=== PATIENT | female | born 1990 | race Caucasian/White ===

== ENCOUNTER 2021-05-12 17:06 | Outpatient (CLI) | payer OTHER ==
--- NOTE | 2021-05-12 18:33 | Ultrasound Report ---
PROCEDURE: OB Limited INDICATIONS: SPOTTING 3RD TRIMESTER, CERVICAL LENGTH OUTSIDE/PRIOR DATING DATA: Last menstrual period (LMP): 10/19/2020. LMP-based estimated date of delivery (MORGAN): 07/26/2021. First dating scan (date and location): 02/04/2021. Estimated date of delivery (MORGAN) from first dating scan: 08/03/2021. The below data below was generated using the ultrasound MORGAN of 08/03/2021 TECHNIQUE: Real-time scanning was performed of the fetus, with image documentation. Endovaginal scanning: Performed COMPARISON: None. FINDINGS: A single living intrauterine gestation is present. Presentation: Cephalic Placenta: Placental position is anterior, without previa. Amniotic fluid index: 13.4 cm, with normal 5-24 cm. Largest fluid pocket 4.3 cm. heart rate: 140 beats per minutes. Maternal cervical canal: Closed and 4.6 cm long; normal length is 2.5 cm or more. Estimated gestational age from initial scan: 28 weeks 1 day. IMPRESSION: 1. Single living intrauterine . 2. No evidence of placental abruption. 3. Normal amniotic fluid index. Reviewed by: Galilea Vázquez MD, PhD on 05/12/2021 6:32 PM PST Approved by: Galilea Vázquez MD, PhD on 05/12/2021 6:32 PM PST Station ID: [id number]
== END 2021-05-12 17:07 | disposition home or self-care (01) ==
LOC: DI 17:06
PROVIDERS: ATTEND Midwife
DX: O26.853 Spotting complicating pregnancy, third trimester (principal); Z3A.28 28 weeks gestation of pregnancy

== ENCOUNTER 2021-08-03 18:05 | Inpatient (IN) | payer OTHER ==
[2021-08-03] MEDS ORDERED: miSOPROStoL 200 MCG TABLET PR PRN (18:28)
[2021-08-03] MEDS ORDERED: OXYTOCIN/SODIUM CHLORIDE 500 ML IV PRN (18:28)
[2021-08-03] MEDS ORDERED: LIDOCAINE-MPF 1% 30 ML VIAL ID PRN (18:28)
[2021-08-03] MEDS ORDERED: SODIUM CHLORIDE FLUSH 0.9% 10 ML SYRINGE IVP PRN (18:28)
[2021-08-03] MEDS ORDERED: ACETAMINOPHEN 500 MG TABLET PO PRN (18:28)
[2021-08-03] MEDS ORDERED: OXYTOCIN 10 UNIT/ML VIAL IM PRN (18:28)
[2021-08-03] MEDS ORDERED: LABETALOL 20 MG/4 ML SYRINGE IVP PRN ×2 (18:28)
[2021-08-03] MEDS ORDERED: LACTATED RINGERS 500 ML IV PRN (18:28)
[2021-08-03] MEDS ORDERED: TRANEXAMIC ACID IN NACL 1,000 MG/100 ML BAG IV PRN (18:28)
[2021-08-03] MEDS ORDERED: CARBOPROST TROMETHAMINE 250 MCG/ML AMP IM PRN (18:28)
[2021-08-03] MEDS ORDERED: TERBUTALINE 1 MG/ML VIAL SUBQ PRN (18:28)
[2021-08-03] MEDS ORDERED: fentaNYL 100 MCG/2 ML VIAL IVP PRN (18:28)
[2021-08-03] MEDS ORDERED: METHYLERGONOVINE 0.2 MG/ML VIAL IM PRN (18:28)
[2021-08-03] MEDS ORDERED: miSOPROStoL 200 MCG TABLET BC PRN (18:28)
[2021-08-03] MEDS ORDERED: hydrALAZINE INJ 20 MG/ML VIAL IVP PRN (18:28)
--- NOTE | 2021-08-03 18:34 | HISTORY & PHYSICAL EXAMINATION ---
Admit History - Visit Reason Visit Reason: Contractions - : 1 Parity: 0 Care: positive: Other ([facility]) - Mother's Labs Mother's Blood Type: positive: O Mother's RH: positive: Negative GBS: positive: Group B Step Negative - Other Maternal History Other Maternal History: ID: Patient is a 30 yo at 40+0 wga here as a transfer from [facility] HPI: Patient has been receving [facility] form [facility]. Pregnacy has been uncomplicated. Patient has been in prodromal labor for about 3 days. She has onyl advacned to 3 cm dilation and is exhausted. She is requesting admission with epidural placement. She would like a low intervention labor course. Having regular contractions. No LOF or VB. Endorses FM. having a female named Noemi. GBS negative. O negative. No hx of HSV. Hard copy of records were not yet available but electronic records were reviewed with transferring provder. PMH: none PSH: none OB HX: , No STIs, no abnl pap smears SOC HX: Recently moved form [place]. Wally RUSS, active duty. ROS: As per HPI, otherwise remaining systems are negative. PE: VS: 98.2 94 132/78 18 GEN: NAD HEENT: NCAT CV: RR RESP: nl effort ABD: gravid, S&NT/ND EXT: WWP PSYCH: appropriate affect NEURO: A&O EFM 135 mod laurence 15x15 accels no decels TOCO: Q5 min A/P: 30 yo at 40+0 wga with prolonged latent stage requesting transfer from [facility] for pain management LABOR: SVE 3 cm dilated per LPM exam -Will reassess after epidural placed -Patient desires low intervention PAIN: Provided with nitrous oxide until epidural could be placed -Epidural when admission process complete FWB: Vertex, GBS neg, Cat I tracing, well grown In-patient care Meds/Allgy - Allergies Allergies/Adverse Reactions: Allergies Allergy/AdvReac Type Severity Reaction Status Date / Time Sulfa (Sulfonamide Allergy Rash Verified 08/03/21 18:49 Antibiotics)
[2021-08-03] MEDS: LACTATED RINGERS 1,000 ML IV PRN ×2 (18:39→21:54)
[2021-08-03] MEDS ORDERED: ePHEDrine 50 MG/ML VIAL IVP PRN (18:50)
[2021-08-03] MEDS ORDERED: NALOXONE 0.4 MG/ML VIAL IVP PRN (18:50)
--- NOTE | 2021-08-03 18:50 | ANESTHESIA ---
Pre-Anesthesia VS, & Labs - Diagnosis active labor - Procedure vaginal delivery Vital Signs: Temp Pulse Resp BP Pulse Ox 36.8 C 94 18 132/78 H 08/03/21 18:14 08/03/21 18:14 08/03/21 18:14 08/03/21 18:14 Height: 5 ft 1 in Weight (kg): 68.039 kg Body Mass Index: 28.3 BMI Classification: Overweight - NPO Other (clear liquids) - Is Patient ?: Yes Home Medications and Allergies Active Medications Acetaminophen (Acetaminophen 500 Mg Tablet) 1,000 mg PO Q8H PRN PRN Reason: Pain or Fever > 38C (100.4F) Carboprost Tromethamine (Carboprost Tromethamine 250 Mcg/Ml Amp) 250 mcg IM .ONCE PRN PRN Reason: Hemorrhage Fentanyl (Fentanyl 100 Mcg/2 Ml Vial) 50 mcg IVP Q1H PRN PRN Reason: Severe Pain (score 7-10) Hydralazine HCl (Hydralazine Inj 20 Mg/Ml Vial) 10 mg IVP .ONCE PRN; Protocol PRN Reason: Step 9 of Labetalol protocol Stop: 08/08/21 18:29 Oxytocin/Sodium Chloride (Pitocin/Sodium Chloride) 500 mls @ 999 mls/hr IV PRN PRN; Protocol PRN Reason: POST- HEMORR PREVENTION Tranexamic Acid (Tranexamic 1,000 Mg/100ml-Nacl) 1,000 mg in 100 mls @ 600 mls/hr IV Q30M PRN PRN Reason: EBL >1200mL and within 3hr Lactated Ringer's (Lr) 1,000 mls @ 75 mls/hr IV .[id number] PRN PRN Reason: per physician order Last Admin: 08/03/21 18:39 Dose: 75 mls/hr Lactated Ringer's (Lr) 500 mls @ 999 mls/hr IV ONCE PRN PRN Reason: PER PHYSICIAN ORDER Stop: 08/07/21 18:27 Labetalol HCl (Labetalol 20 Mg/4 Ml Syringe) 20 - 80 mg IVP Q10M PRN; Protocol PRN Reason: SBP> or= 160 OR DBP> or= 110 Labetalol HCl (Labetalol 20 Mg/4 Ml Syringe) 20 mg IVP .ONCE PRN; Protocol PRN Reason: SBP> or= 160 OR DBP> or= 110 Lidocaine HCl (Lidocaine-Mpf 1% 30 Ml Vial) 30 ml ID ONCE PRN PRN Reason: PERINEAL REPAIR Stop: 08/04/21 18:28 Methylergonovine Maleate (Methylergonovine 0.2 Mg/Ml Vial) 0.2 mg IM .ONCE PRN PRN Reason: Hemorrhage Misoprostol (Misoprostol 200 Mcg Tablet) 600 mcg BC .ONCE PRN PRN Reason: Hemorrhage Misoprostol (Misoprostol 200 Mcg Tablet) 800 mcg OK .ONCE PRN PRN Reason: Hemorrhage Oxytocin (Oxytocin 10 Unit/Ml Vial) 10 unit IM .ONCE PRN PRN Reason: Step One if no IV access. Sodium Chloride (Sodium Chloride Flush 0.9% 10 Ml Syringe) 10 ml IVP PRN PRN PRN Reason: NEEDED PER PROVIDER ORDERS Sodium Chloride (Sodium Chloride Flush 0.9% 10 Ml Syringe) 10 ml IVP Q8H YENIFER Terbutaline Sulfate (Terbutaline 1 Mg/Ml Vial) 0.25 mg SUBQ ONCE PRN PRN Reason: Tachystole Stop: 08/06/21 18:27 Allergies/Adverse Reactions: Allergies Allergy/AdvReac Type Severity Reaction Status Date / Time Sulfa (Sulfonamide Allergy Rash Verified 08/03/21 18:49 Antibiotics) Anes History & Medical History - Anesthetic History Family history of Anesthesia Complications: Denies Family history of Malignant Hyperthermia: Denies - Medical History Cardiovascular: reports: None Pulmonary: reports: None Gastrointestinal: reports: None Urinary: reports: None Neuro: reports: None Musculoskeletal: reports: None Endocrine/Autoimmune: reports: None Blood Disorders: reports: None Skin: reports: None Smoking Status: Never smoker Psychosocial: reports: No issues indicated History of Cancer?: No - Obstetrical History : 1 Parity: 0 Exam General: Alert, Oriented x3, Cooperative, No acute distress Dental: WNL Mouth Openin Fingerbreadth Neck Mobility: Normal Mallampati classification: I Thyromental Distance: 4-6 cm Mental/Cognitive Status: Alert/Oriented X3, Normal for patient Plan Anesthesia Type: Epidural Consent for Procedure(s) Verified and Reviewed: Yes Code Status: Attempt Resuscitation ASA classification: 2-Mild systemic disease Is this case an emergency?: No
[2021-08-03 18:55] LABS: BASOPHILS % (AUTO) 0.3 %; EOSINOPHILS % (AUTO) 0.1 %; HCT - HEMATOCRIT 35.2 % (37.0-47.0); HGB - HEMOGLOBIN 11.7 g/dL (12.0-16.0); LYMPHOCYTES % (AUTO) 6.1 %; MEAN CORPUSCULAR HEMOGLOBIN 28.2 pg (27.0-31.0); MEAN CORPUSCULAR HGB CONC 33.2 g/dL (32.0-36.0); MEAN CORPUSCULAR VOLUME 84.8 fL (81.0-99.0); MEAN PLATELET VOLUME 10.3 fL (7.9-10.8); MONOCYTES % (AUTO) 5.1 %; NEUTROPHILS % (AUTO) 87.1 %; PLT - PLATELET COUNT 327 10^3/uL (130-450); RED BLOOD COUNT 4.15 10^6/uL (4.20-5.40); RED CELL DISTRIBUTION WIDTH 14.5 % (12.0-15.0); WHITE BLOOD COUNT 25.1 x10^3/uL (4.8-10.8)
[2021-08-03 18:57] LABS: ABNORMAL LYMPHS % (MANUAL) 0 %; BAND NEUTROPHILS % (MANUAL) 0 %
[2021-08-03 19:07] LABS: ALBUMIN 3.5 g/dL (3.2-5.5); ALBUMIN/GLOBULIN RATIO 0.9 (1.0-2.2); BILIRUBIN,TOTAL 0.6 mg/dL (0.2-1.0); CALCIUM 9.5 mg/dL (8.5-10.3); CREATININE 0.5 mg/dL (0.4-1.0); POTASSIUM 3.8 mmol/L (3.5-5.0); TOTAL PROTEIN 7.6 g/dL (6.7-8.2)
[2021-08-03 19:22] LABS: LYMPHOCYTES % (MANUAL) 8 %; MONOCYTES # (MANUAL) 1.3 10^3/uL (0.0-1.0); NEUTROPHILS # (MANUAL) 21.8 10^3/uL (1.5-6.6)
[2021-08-03 19:23] LABS: DIFFERENTIAL COMMENT MANUAL DIFFERENTIAL; PLATELET ESTIMATE, MANUAL NORMAL (130-450,000) (NORMAL); PLATELET MORPHOLOGY NORMAL APPEARANCE (NORMAL); RBC MORPHOLOGY (MULTIPLE) NORMAL APPEARANCE (NORMAL); WBC MORPHOLOGY (MULTIPLE) NORMAL APPEARANCE (NORMAL)
[2021-08-03 20:45] LABS: RUPTURE OF MEMBRANES PLUS POSITIVE (NEGATIVE)
--- NOTE | 2021-08-03 22:47 | PROVIDER PROGRESS NOTE ---
Subjective - Prog Note Date Prog Note Date: 08/03/21 Prog Note Time: 22:46 - Subjective Subjective: Patient reports gush of warm fluid after de la torre catheter placed. Comfortable with epidural in place SVE /BBOW ROM+ positive EFM 135 mod luarence 15x15 accels no decels TOCO: quiet SROM at 20:10 Cat I tracing Patient desires sleep with low intervention labor course. Objective - Vital Signs/Intake & Output Vital Signs: Vital Signs x48h Temp Pulse Resp BP 08/03/21 18:14 98.2 F 94 18 132/78 H Intake & Output: Intake & Output 07/31/21 08/01/21 08/02/21 08/03/21 23:59 23:59 23:59 23:59 Intake Total 1000 Output Total 400 Balance 600 - Lab Results Fish Bones: 08/03/21 18:30 08/03/21 18:30 Other Labs: Lab Results x24hrs 08/03/21 08/03/21 08/03/21 Range/Units 20:25 18:30 18:30 WBC 25.1 H (4.8-10.8) x10^3/uL RBC 4.15 L (4.20-5.40) 10^6/uL Hgb 11.7 L (12.0-16.0) g/dL Hct 35.2 L (37.0-47.0) % MCV 84.8 (81.0-99.0) fL MCH 28.2 (27.0-31.0) pg MCHC 33.2 (32.0-36.0) g/dL RDW 14.5 (12.0-15.0) % Plt Count 327 (130-450) 10^3/uL MPV 10.3 (7.9-10.8) fL Neut # (Auto) Not Reportable Lymph # (Auto) Not Reportable [place] # (Auto) Not Reportable Eos # (Auto) Not Reportable Baso # (Auto) Not Reportable Absolute Nucleated RBC Not Reportable Total Counted 100 Band Neuts % (Manual) 0 (0 - 10) % Abnorm Lymph % (Manual) 0 % Nucleated RBC % Not Reportable Neutrophils # (Manual) 21.8 H (1.5-6.6) 10^3/uL Lymphocytes # (Manual) 2.0 (1.5-3.5) 10^3/uL Monocytes # (Manual) 1.3 H (0.0-1.0) 10^3/uL Eosinophils # (Manual) 0.0 (0-0.7) 10^3/uL Basophils # (Manual) 0.0 (0-0.1) 10^3/uL Differential Comment MANUAL DIFFERENTIAL WBC Morphology NORMAL APPEARANCE (NORMAL) Platelet Estimate NORMAL (130-450,000) (NORMAL) Platelet Morphology NORMAL APPEARANCE (NORMAL) RBC Morph Micro Appear NORMAL APPEARANCE (NORMAL) Sodium 130 L (135-145) mmol/L Potassium 3.8 (3.5-5.0) mmol/L Chloride 100 L (101-111) mmol/L Carbon Dioxide 18 L (21-32) mmol/L Anion Gap 12.0 (6-13) BUN 7 (6-20) mg/dL Creatinine 0.5 (0.4-1.0) mg/dL Estimated GFR (MDRD) 146 (>89) Glucose 98 (70-100) mg/dL Calcium 9.5 (8.5-10.3) mg/dL Total Bilirubin 0.6 (0.2-1.0) mg/dL AST 22 (10-42) IU/L ALT 16 (10-60) IU/L Alkaline Phosphatase 124 H (42-121) IU/L Total Protein 7.6 (6.7-8.2) g/dL Albumin 3.5 (3.2-5.5) g/dL Globulin 4.1 (2.1-4.2) g/dL Albumin/Globulin Ratio 0.9 L (1.0-2.2) Membranes Rupture POSITIVE A (NEGATIVE) Blood Type Antibody Screen 08/03/21 Range/Units 18:30 WBC (4.8-10.8) x10^3/uL RBC (4.20-5.40) 10^6/uL Hgb (12.0-16.0) g/dL Hct (37.0-47.0) % MCV (81.0-99.0) fL MCH (27.0-31.0) pg MCHC (32.0-36.0) g/dL RDW (12.0-15.0) % Plt Count (130-450) 10^3/uL MPV (7.9-10.8) fL Neut # (Auto) Lymph # (Auto) [place] # (Auto) Eos # (Auto) Baso # (Auto) Absolute Nucleated RBC Total Counted Band Neuts % (Manual) (0 - 10) % Abnorm Lymph % (Manual) % Nucleated RBC % Neutrophils # (Manual) (1.5-6.6) 10^3/uL Lymphocytes # (Manual) (1.5-3.5) 10^3/uL Monocytes # (Manual) (0.0-1.0) 10^3/uL Eosinophils # (Manual) (0-0.7) 10^3/uL Basophils # (Manual) (0-0.1) 10^3/uL Differential Comment WBC Morphology (NORMAL) Platelet Estimate (NORMAL) Platelet Morphology (NORMAL) RBC Morph Micro Appear (NORMAL) Sodium (135-145) mmol/L Potassium (3.5-5.0) mmol/L Chloride (101-111) mmol/L Carbon Dioxide (21-32) mmol/L Anion Gap (6-13) BUN (6-20) mg/dL Creatinine (0.4-1.0) mg/dL Estimated GFR (MDRD) (>89) Glucose (70-100) mg/dL Calcium (8.5-10.3) mg/dL Total Bilirubin (0.2-1.0) mg/dL AST (10-42) IU/L ALT (10-60) IU/L Alkaline Phosphatase (42-121) IU/L Total Protein (6.7-8.2) g/dL Albumin (3.2-5.5) g/dL Globulin (2.1-4.2) g/dL Albumin/Globulin Ratio (1.0-2.2) Membranes Rupture (NEGATIVE) Blood Type O NEGATIVE Antibody Screen NEGATIVE
[2021-08-04] MEDS: ROPIVACAINE 0.2% 200 MG/100 ML BAG EP PRN ×3 (02:02→16:35)
[2021-08-04] MEDS ORDERED: CALCIUM CARBONATE CHEW 500 MG TABLET PO PRN (05:48)
[2021-08-04] MEDS: LACTATED RINGERS 1,000 ML IV PRN (10:08)
[2021-08-04] MEDS ORDERED: LIDOCAINE-MPF 2% 5 ML VIAL ONE ×3 (13:11→21:28)
[2021-08-04] MEDS ORDERED: fentaNYL 100 MCG/2 ML VIAL ONE ×3 (13:11→21:37)
[2021-08-04] MEDS ORDERED: SODIUM CHLORIDE 0.9% 10 ML VIAL IVP ONE (13:12)
--- NOTE | 2021-08-04 13:30 | PROVIDER PROGRESS NOTE ---
Subjective - Prog Note Date Prog Note Date: 08/04/21 Prog Note Time: 13:29 - Subjective Subjective: Epidural was bolused. Patient feeling pressure. Forebag ruptured. Clear fluid 8/C/-2 Cat I tracing Anticipate Objective - Vital Signs/Intake & Output Intake & Output: Intake & Output 08/01/21 08/02/21 08/03/21 08/04/21 23:59 23:59 23:59 23:59 Intake Total 1000 917.5 Output Total 1000 650 Balance 0 267.5 - Lab Results Fish Bones: 08/03/21 18:30 08/03/21 18:30 Other Labs: Lab Results x24hrs 08/03/21 08/03/21 08/03/21 Range/Units 20:25 18:30 18:30 WBC 25.1 H (4.8-10.8) x10^3/uL RBC 4.15 L (4.20-5.40) 10^6/uL Hgb 11.7 L (12.0-16.0) g/dL Hct 35.2 L (37.0-47.0) % MCV 84.8 (81.0-99.0) fL MCH 28.2 (27.0-31.0) pg MCHC 33.2 (32.0-36.0) g/dL RDW 14.5 (12.0-15.0) % Plt Count 327 (130-450) 10^3/uL MPV 10.3 (7.9-10.8) fL Neut # (Auto) Not Reportable Lymph # (Auto) Not Reportable [place] # (Auto) Not Reportable Eos # (Auto) Not Reportable Baso # (Auto) Not Reportable Absolute Nucleated RBC Not Reportable Total Counted 100 Band Neuts % (Manual) 0 (0 - 10) % Abnorm Lymph % (Manual) 0 % Nucleated RBC % Not Reportable Neutrophils # (Manual) 21.8 H (1.5-6.6) 10^3/uL Lymphocytes # (Manual) 2.0 (1.5-3.5) 10^3/uL Monocytes # (Manual) 1.3 H (0.0-1.0) 10^3/uL Eosinophils # (Manual) 0.0 (0-0.7) 10^3/uL Basophils # (Manual) 0.0 (0-0.1) 10^3/uL Differential Comment MANUAL DIFFERENTIAL WBC Morphology NORMAL APPEARANCE (NORMAL) Platelet Estimate NORMAL (130-450,000) (NORMAL) Platelet Morphology NORMAL APPEARANCE (NORMAL) RBC Morph Micro Appear NORMAL APPEARANCE (NORMAL) Sodium 130 L (135-145) mmol/L Potassium 3.8 (3.5-5.0) mmol/L Chloride 100 L (101-111) mmol/L Carbon Dioxide 18 L (21-32) mmol/L Anion Gap 12.0 (6-13) BUN 7 (6-20) mg/dL Creatinine 0.5 (0.4-1.0) mg/dL Estimated GFR (MDRD) 146 (>89) Glucose 98 (70-100) mg/dL Calcium 9.5 (8.5-10.3) mg/dL Total Bilirubin 0.6 (0.2-1.0) mg/dL AST 22 (10-42) IU/L ALT 16 (10-60) IU/L Alkaline Phosphatase 124 H (42-121) IU/L Total Protein 7.6 (6.7-8.2) g/dL Albumin 3.5 (3.2-5.5) g/dL Globulin 4.1 (2.1-4.2) g/dL Albumin/Globulin Ratio 0.9 L (1.0-2.2) Membranes Rupture POSITIVE A (NEGATIVE) Blood Type Antibody Screen 08/03/21 Range/Units 18:30 WBC (4.8-10.8) x10^3/uL RBC (4.20-5.40) 10^6/uL Hgb (12.0-16.0) g/dL Hct (37.0-47.0) % MCV (81.0-99.0) fL MCH (27.0-31.0) pg MCHC (32.0-36.0) g/dL RDW (12.0-15.0) % Plt Count (130-450) 10^3/uL MPV (7.9-10.8) fL Neut # (Auto) Lymph # (Auto) [place] # (Auto) Eos # (Auto) Baso # (Auto) Absolute Nucleated RBC Total Counted Band Neuts % (Manual) (0 - 10) % Abnorm Lymph % (Manual) % Nucleated RBC % Neutrophils # (Manual) (1.5-6.6) 10^3/uL Lymphocytes # (Manual) (1.5-3.5) 10^3/uL Monocytes # (Manual) (0.0-1.0) 10^3/uL Eosinophils # (Manual) (0-0.7) 10^3/uL Basophils # (Manual) (0-0.1) 10^3/uL Differential Comment WBC Morphology (NORMAL) Platelet Estimate (NORMAL) Platelet Morphology (NORMAL) RBC Morph Micro Appear (NORMAL) Sodium (135-145) mmol/L Potassium (3.5-5.0) mmol/L Chloride (101-111) mmol/L Carbon Dioxide (21-32) mmol/L Anion Gap (6-13) BUN (6-20) mg/dL Creatinine (0.4-1.0) mg/dL Estimated GFR (MDRD) (>89) Glucose (70-100) mg/dL Calcium (8.5-10.3) mg/dL Total Bilirubin (0.2-1.0) mg/dL AST (10-42) IU/L ALT (10-60) IU/L Alkaline Phosphatase (42-121) IU/L Total Protein (6.7-8.2) g/dL Albumin (3.2-5.5) g/dL Globulin (2.1-4.2) g/dL Albumin/Globulin Ratio (1.0-2.2) Membranes Rupture (NEGATIVE) Blood Type O NEGATIVE Antibody Screen NEGATIVE
--- NOTE | 2021-08-04 13:31 | PROVIDER PROGRESS NOTE ---
Subjective - Prog Note Date Prog Note Date: 08/04/21 Prog Note Time: 09:00 - Subjective Subjective: Comfortable with epidural in place. VS wnl SVE /BBOW Cat I tracing Objective - Vital Signs/Intake & Output Intake & Output: Intake & Output 08/01/21 08/02/21 08/03/21 08/04/21 23:59 23:59 23:59 23:59 Intake Total 1000 917.5 Output Total 1000 650 Balance 0 267.5 - Lab Results Fish Bones: 08/03/21 18:30 08/03/21 18:30 Other Labs: Lab Results x24hrs 08/03/21 08/03/21 08/03/21 Range/Units 20:25 18:30 18:30 WBC 25.1 H (4.8-10.8) x10^3/uL RBC 4.15 L (4.20-5.40) 10^6/uL Hgb 11.7 L (12.0-16.0) g/dL Hct 35.2 L (37.0-47.0) % MCV 84.8 (81.0-99.0) fL MCH 28.2 (27.0-31.0) pg MCHC 33.2 (32.0-36.0) g/dL RDW 14.5 (12.0-15.0) % Plt Count 327 (130-450) 10^3/uL MPV 10.3 (7.9-10.8) fL Neut # (Auto) Not Reportable Lymph # (Auto) Not Reportable [place] # (Auto) Not Reportable Eos # (Auto) Not Reportable Baso # (Auto) Not Reportable Absolute Nucleated RBC Not Reportable Total Counted 100 Band Neuts % (Manual) 0 (0 - 10) % Abnorm Lymph % (Manual) 0 % Nucleated RBC % Not Reportable Neutrophils # (Manual) 21.8 H (1.5-6.6) 10^3/uL Lymphocytes # (Manual) 2.0 (1.5-3.5) 10^3/uL Monocytes # (Manual) 1.3 H (0.0-1.0) 10^3/uL Eosinophils # (Manual) 0.0 (0-0.7) 10^3/uL Basophils # (Manual) 0.0 (0-0.1) 10^3/uL Differential Comment MANUAL DIFFERENTIAL WBC Morphology NORMAL APPEARANCE (NORMAL) Platelet Estimate NORMAL (130-450,000) (NORMAL) Platelet Morphology NORMAL APPEARANCE (NORMAL) RBC Morph Micro Appear NORMAL APPEARANCE (NORMAL) Sodium 130 L (135-145) mmol/L Potassium 3.8 (3.5-5.0) mmol/L Chloride 100 L (101-111) mmol/L Carbon Dioxide 18 L (21-32) mmol/L Anion Gap 12.0 (6-13) BUN 7 (6-20) mg/dL Creatinine 0.5 (0.4-1.0) mg/dL Estimated GFR (MDRD) 146 (>89) Glucose 98 (70-100) mg/dL Calcium 9.5 (8.5-10.3) mg/dL Total Bilirubin 0.6 (0.2-1.0) mg/dL AST 22 (10-42) IU/L ALT 16 (10-60) IU/L Alkaline Phosphatase 124 H (42-121) IU/L Total Protein 7.6 (6.7-8.2) g/dL Albumin 3.5 (3.2-5.5) g/dL Globulin 4.1 (2.1-4.2) g/dL Albumin/Globulin Ratio 0.9 L (1.0-2.2) Membranes Rupture POSITIVE A (NEGATIVE) Blood Type Antibody Screen 08/03/21 Range/Units 18:30 WBC (4.8-10.8) x10^3/uL RBC (4.20-5.40) 10^6/uL Hgb (12.0-16.0) g/dL Hct (37.0-47.0) % MCV (81.0-99.0) fL MCH (27.0-31.0) pg MCHC (32.0-36.0) g/dL RDW (12.0-15.0) % Plt Count (130-450) 10^3/uL MPV (7.9-10.8) fL Neut # (Auto) Lymph # (Auto) [place] # (Auto) Eos # (Auto) Baso # (Auto) Absolute Nucleated RBC Total Counted Band Neuts % (Manual) (0 - 10) % Abnorm Lymph % (Manual) % Nucleated RBC % Neutrophils # (Manual) (1.5-6.6) 10^3/uL Lymphocytes # (Manual) (1.5-3.5) 10^3/uL Monocytes # (Manual) (0.0-1.0) 10^3/uL Eosinophils # (Manual) (0-0.7) 10^3/uL Basophils # (Manual) (0-0.1) 10^3/uL Differential Comment WBC Morphology (NORMAL) Platelet Estimate (NORMAL) Platelet Morphology (NORMAL) RBC Morph Micro Appear (NORMAL) Sodium (135-145) mmol/L Potassium (3.5-5.0) mmol/L Chloride (101-111) mmol/L Carbon Dioxide (21-32) mmol/L Anion Gap (6-13) BUN (6-20) mg/dL Creatinine (0.4-1.0) mg/dL Estimated GFR (MDRD) (>89) Glucose (70-100) mg/dL Calcium (8.5-10.3) mg/dL Total Bilirubin (0.2-1.0) mg/dL AST (10-42) IU/L ALT (10-60) IU/L Alkaline Phosphatase (42-121) IU/L Total Protein (6.7-8.2) g/dL Albumin (3.2-5.5) g/dL Globulin (2.1-4.2) g/dL Albumin/Globulin Ratio (1.0-2.2) Membranes Rupture (NEGATIVE) Blood Type O NEGATIVE Antibody Screen NEGATIVE
[2021-08-04] MEDS ORDERED: ROPIVACAINE 0.2% PF 10 ML VIAL ONE ×2 (14:53→17:57)
--- NOTE | 2021-08-04 15:08 | CONSULTATION NOTE ---
Consultation Report: Call for pain with contractions. Midline, intense, 10/10. Sensory level appreciated at L1. Able to easily move B LE. Pt to sitting position. Epidural bolus of 10cc 0.2% ropi given over 2 mins. Pain improved with bolus.
--- NOTE | 2021-08-04 16:05 | CONSULTATION NOTE ---
Consultation Report: Continuous sharp pain at groin and right abdomen area with contractions. Pt states last bolus provided short term relief. Remains in seated position for comfort. Sensory level @T12 on left, right @L2. Epidural bolus of 8cc 1% Lidocaine and 100mcg Fentanyl. Pt states pain at 2/10 after 5 mins with 3 contractions. Intermittent bolus changed to 12cc.
[2021-08-04] MEDS ORDERED: OXYTOCIN/SODIUM CHLORIDE 500 ML IV SCH (19:09)
[2021-08-04] MEDS: SODIUM CHLORIDE FLUSH 0.9% 10 ML SYRINGE IVP SCH ×2 (19:10→19:11)
--- NOTE | 2021-08-04 19:17 | PROVIDER PROGRESS NOTE ---
Subjective - Prog Note Date Prog Note Date: 08/04/21 Prog Note Time: 19:13 - Subjective Subjective: Patient comfortable after second epidural bolus. Afebrile VSS EFM: 135 mod laurence 15x15 accels no decels but periodically has random intermittent decels TOCO: Q3 min SVE 6/90/high Clear fluid Cervix is elongating and caput developing Starting pitocin Started discussion of delivery Will check in 2 hours. In no cervical change, will add IUPC to assess for adequacy of contractions Reviewed that patient can request at any time and is under no pressure to continue all interventions At present, I am comfortable progressing labor and will inform patient when my comfort level is going to be exceeded but she is free to have a CS at any time per her request. Objective - Vital Signs/Intake & Output Intake & Output: Intake & Output 08/01/21 08/02/21 08/03/21 08/04/21 23:59 23:59 23:59 23:59 Intake Total 1000 917.5 Output Total 1000 1950 Balance 0 -1032.5 - Lab Results Fish Bones: 08/03/21 18:30 08/03/21 18:30 Other Labs: Lab Results x24hrs 08/03/21 08/03/21 08/03/21 Range/Units 20:25 18:30 18:30 Neut # (Auto) Not Reportable Lymph # (Auto) Not Reportable [place] # (Auto) Not Reportable Eos # (Auto) Not Reportable Baso # (Auto) Not Reportable Absolute Nucleated RBC Not Reportable Total Counted 100 Band Neuts % (Manual) 0 (0 - 10) % Abnorm Lymph % (Manual) 0 % Nucleated RBC % Not Reportable Neutrophils # (Manual) 21.8 H (1.5-6.6) 10^3/uL Lymphocytes # (Manual) 2.0 (1.5-3.5) 10^3/uL Monocytes # (Manual) 1.3 H (0.0-1.0) 10^3/uL Eosinophils # (Manual) 0.0 (0-0.7) 10^3/uL Basophils # (Manual) 0.0 (0-0.1) 10^3/uL Differential Comment MANUAL DIFFERENTIAL WBC Morphology NORMAL APPEARANCE (NORMAL) Platelet Estimate NORMAL (130-450,000) (NORMAL) Platelet Morphology NORMAL APPEARANCE (NORMAL) RBC Morph Micro Appear NORMAL APPEARANCE (NORMAL) Membranes Rupture POSITIVE A (NEGATIVE) Blood Type O NEGATIVE Antibody Screen NEGATIVE
[2021-08-04] MEDS ORDERED: diphenhydrAMINE INJ 50 MG/ML VIAL IVP PRN ×2 (21:11→22:36)
--- NOTE | 2021-08-04 21:12 | PROVIDER PROGRESS NOTE ---
Subjective - Prog Note Date Prog Note Date: 08/04/21 Prog Note Time: 21:09 - Subjective Subjective: Pain well managed with epidural. Started pitocin but unable to increase rate beyond 1 mU/min 2/2 tracing. Intermittent decels, deepest giorgi 55 with recovery to baseline, showing periods of marked variability SVE unchanged from /-2 but now with cervical swelling. Recommended . Patient declined. Patient initially declined internalizing monitors. After discussion of , patient requested trial of FSE and IUPC. Agreed to IV benadryl for cervical swelling Expressed my misgivings regarding tracing and reviewed strip with patient and partner, indicating areas where decelerations had been occuring and comparing with prior Cat I tracing. Reviewed that she has been laboring for 4 days at this point and this is an abnormal labor course. Patient voiced understanding. Declines CS. Opting for internalized monitors and Benadryl Objective - Vital Signs/Intake & Output Intake & Output: Intake & Output 08/01/21 08/02/21 08/03/21 08/04/21 23:59 23:59 23:59 23:59 Intake Total 1000 917.5 Output Total 1000 2600 Balance 0 -1682.5 - Lab Results Fish Bones: 08/03/21 18:30 08/03/21 18:30
[2021-08-04] MEDS ORDERED: diphenhydrAMINE INJ 50 MG/ML VIAL ONE (21:24)
--- NOTE | 2021-08-04 21:25 | PROVIDER PROGRESS NOTE ---
Subjective - Prog Note Date Prog Note Date: 08/04/21 Prog Note Time: 21:25 - Subjective Subjective: Recommmending Patient agrees Objective - Vital Signs/Intake & Output Intake & Output: Intake & Output 08/01/21 08/02/21 08/03/21 08/04/21 23:59 23:59 23:59 23:59 Intake Total 1000 917.5 Output Total 1000 2600 Balance 0 -1682.5 - Lab Results Fish Bones: 08/03/21 18:30 08/03/21 18:30
[2021-08-04] MEDS ORDERED: OXYTOCIN 10 UNIT/ML VIAL ONE (21:38)
[2021-08-04] MEDS ORDERED: MORPHINE PF 5 MG/10 ML VIAL ONE (21:38)
[2021-08-04] MEDS ORDERED: AZITHROMYCIN INJ 500 MG in SODIUM CHLORIDE 0.9% 250 ML IV SCH (21:40)
[2021-08-04] MEDS ORDERED: MORPHINE PF 5 MG/10 ML VIAL IT ONE (21:48)
[2021-08-04] MEDS ORDERED: fentaNYL 100 MCG/2 ML VIAL IT ONE (21:48)
[2021-08-04] MEDS ORDERED: ONDANSETRON 4 MG/2 ML VIAL ONE (21:55)
[2021-08-04] MEDS ORDERED: ceFAZolin 1 GM VIAL ONE ×2 (22:03→22:04)
[2021-08-04] MEDS ORDERED: METOCLOPRAMIDE 10 MG/2 ML VIAL IVP PRN ×2 (22:36→22:37)
[2021-08-04] MEDS ORDERED: NALOXONE 0.4 MG/ML VIAL IVP PRN ×2 (22:36→22:37)
[2021-08-04] MEDS ORDERED: ePHEDrine 50 MG/ML VIAL IVP PRN ×2 (22:36→22:37)
[2021-08-04] MEDS ORDERED: ONDANSETRON 4 MG/2 ML VIAL IVP PRN ×2 (22:36→22:37)
[2021-08-04] MEDS ORDERED: NALBUPHINE 10 MG/ML AMP IVP PRN (22:36)
[2021-08-04] MEDS ORDERED: MORPHINE 2 MG/ML CARPUJECT IVP PRN (22:37)
[2021-08-04] MEDS ORDERED: fentaNYL 100 MCG/2 ML VIAL IVP PRN (22:37)
[2021-08-04] MEDS ORDERED: ATROPINE ABBOJECT 1 MG/10 ML SYRINGE IVP PRN (22:37)
[2021-08-04] MEDS ORDERED: HYDROmorphone 0.5 MG/0.5 ML SYRINGE IVP PRN (22:37)
[2021-08-04] MEDS ORDERED: ACETAMINOPHEN 1,000 MG/100 ML 100 ML IV ONE (22:38)
[2021-08-04] MEDS ORDERED: NITROGLYCERIN 50 MG/250 ML 50 MG/250 ML BOTTLE IV ONE (22:40)
[2021-08-04] MEDS ORDERED: LACTATED RINGERS 1,000 ML IV SCH (23:00)
[2021-08-04] MEDS ORDERED: LIDOCAINE 2%-EPI 1:100000 20 ML MDV SUBQ ONE (23:24)
[2021-08-04] MEDS ORDERED: BUPIVACAINE 0.5% PF 30 ML VIAL INFIL ONE (23:25)
[2021-08-04] MEDS ORDERED: BUPIVACAINE 0.5% PF 10 ML VIAL ONE (23:27)
[2021-08-04] MEDS ORDERED: LIDOCAINE 2%-EPI 1:100000 20 ML MDV ONE (23:27)
[2021-08-04] MEDS ORDERED: KETOROLAC 30 MG/ML VIAL ONE (23:32)
[2021-08-04] MEDS ORDERED: LACTATED RINGERS 500 ML IV ONE (23:59)
[2021-08-05] MEDS ORDERED: SIMETHICONE CHEW 80 MG TABLET PO PRN (00:01)
[2021-08-05] MEDS ORDERED: ONDANSETRON ODT 4 MG TABLET TL PRN (00:01)
[2021-08-05] MEDS ORDERED: OXYTOCIN/SODIUM CHLORIDE 500 ML IV PRN (00:01)
--- NOTE | 2021-08-05 00:04 | ANESTHESIA POST OP EVALUATION ---
Anesthesia Post Eval - Post Anesthesia Eval Vitals: Last Vital Signs Temp 36.8 C 08/03/21 18:14 Pulse 94 08/03/21 18:14 Resp 18 08/03/21 18:14 BP 132/78 H 08/03/21 18:14 Pulse Ox CV Function Including HR & BP: Stable Pain Control: Satisfactory Nausea & Vomiting: Negative Mental Status: Baseline Respiratory Status: Airway Patent Hydration Status: Satisfactory Anesthesia Complications: None
--- NOTE | 2021-08-05 00:08 | OPERATIVE REPORT ---
Operative Report - General Admit Date: 08/03/21 Procedure Date: 08/04/21 Planned Procedure: Primary low transverse Pre-Op Diagnosis: IUP at 40+1, active stage arrest, intolerance of labor Procedure Performed: Primary low transverse Post Op Diagnosis: Same and delivery of term gestation - Procedure Note Primary Surgeon: Stephanie Hilario MD Secondary Surgeon: PELON Tejeda CNM Anesthesia Provider: Solis Charles CRNA Anesthesia Technique: Spinal Pathology: Placenta for routine discard IV Fluids (mL): 1,700 Estimated Blood Loss (mL): 800 Urine Output (mL): 700 Indications: Patient is a 30 yo at 40+2 who presented as a transfer from [facility], [place]. She had been in latent labor for 3 days with cervical dilation stalled at 3 cm. She was admitted for epidural placement. Spontaneous rupture of membranes at about 20:00 on 08/03/21. She progressed to 6 cm dilation without need for augmentation. GBs negative. She did not dilate past 6 cm for over 6 hours IUPC and FSE were placed. Patient was started on pitocin 1 mu/min. tracing showed recurrent deep decels without advancement in cervical dilation. C -section was recommended for active stage arrest and intolerance of labor. Findings: Female in vertex presentation, with OP positioning. Normal uterus, tubes, and ovaries. Somewhat distended bladder. Small amount of ascites in pelvis. Apgars 8/8.Weight pending. Complications: Bilateral extensions, repaired without complication. - Other Other Information/Narrative: Risks benefits and alternatives of the procedure were discussed. Written informed consent was obtained. Patient was taken to the operating room where spinal anesthesia was placed and found to be adequate. She was prepped and draped in the usual sterile fashion in the dorsal supine position with a leftward tilt. Escobedo catheter was in place. SCDs were in place and activated. Cefazolin 2 g IV and azithromycin 500 mg IV was given as a preoperative antibiotic. Iodine vaginal prep applied. Preoperative timeout was performed. A Pfannenstiel incision was made in the skin with a scalpel and carried through the underlying layer of fascia in a combination of sharp and blunt dissection. The fascia was incised in the midline, and the incision was extended laterally with the Goldman scissors. The superior aspect of the fascial incision was grasped with the Natalia clamps, elevated, and the underlying rectus muscles were dissected off bluntly and sharply using the Goldman scissors. Attention was then turned to the inferior aspect of the incision which in a similar fashion was grasped, tented up with Natalia clamps, and the underlying rectus muscles dissected off bluntly and sharply using Goldman scissors. The rectus muscles were then in the midline. The peritoneum was identified, tented up, and entered bluntly. The peritoneal incision was extended superiorly and inferiorly with good visualization of the bladder. The bladder that blade was then inserted. A bladder flap was not created. The lower uterine segment of the uterus was identified, and incised in a transverse fashion with a scalpel. The uterus was entered bluntly. The uterine incision was extended in a craniocaudal fashion by manual stretch. The bladder blade was removed. The infant was delivered from from vertex/OP position. Extraction was difficult as infant was wedged deep in the pelvis. Baby was wrapped in a warm sterile towel. Delayed cord clamping was performed. After slightly less than a minute, the cord was clamped x2 and cut. The was handed off to the waiting pediatricians. The placenta was removed with manual expression. The uterus was exteriorized and cleared of all clots and debris via manual swipe using Ray-Cody x2. Bilateral extensions was noted. The apex was identified and Allis clamp was placed as a landmark. Extensions were repaired with a running locked suture using 0-Vicryl. The uterine incision was then repaired in a running locked fashion using 0 Vicryl suture. The incision was reinforced with a running imbricating layer again using 0-Vicryl suture. Several figure of 8 sutures were placed using 2-0 Chromic to reinforce the hysterotomy. Excellent hemostasis was obtained. The uterus was returned to the abdomen. The gutters were cleared of all clots and debris. The pelvis was irrigated with warm sloppy wet lap sponges x2. The uterine defect was well visualized in normal anatomic position it was noted again to be hemostatic. The peritoneum was then reapproximated with 2-0 Vicryl in a running fashion. The rectus muscles were then reapproximated using interrupted [id number] sutures using 2-0 Chromic. Good hemostasis was noted. The fascia was then closed using 0 Vicryl in a running fashion starting from the left lateral edge to the midline. A second suture was used to close the fascia in a running fashion starting from the right lateral edge and meeting in the midline, again using 0-Vicryl. A combination of 1% lidocaine and 0.25% bupivicaine with epinephrine was injected into the subcutaneous tissue for a total volume of 30 cc. The subcutaneous tissue was then irrigated and closed using 2-0 chromic in a running subcutaneous suture. Skin was closed in a running subcuticular suture using 4-0 Monocryl. Steri-Strips were applied to reinforce the incision and dressing was applied. Procedure was well-tolerated and without complication. Sponge lap and needle counts were correct x2. Patient was taken to recovery room in stable condition. PELON Tejeda CNM, assisted with retraction, delivery of the , and suturing.
[2021-08-05] MEDS: ACETAMINOPHEN 500 MG TABLET PO SCH ×4 (02:55→19:36)
[2021-08-05] MEDS: oxyCODONE 5 MG TABLET PO PRN ×6 (05:46→23:35)
[2021-08-05] MEDS: KETOROLAC 30 MG/ML VIAL IVP SCH ×4 (05:46→18:31)
[2021-08-05] MEDS: SODIUM CHLORIDE FLUSH 0.9% 10 ML SYRINGE IVP SCH ×3 (05:47→12:38)
[2021-08-05 06:26] LABS: BASOPHILS % (AUTO) 0.5 %; HCT - HEMATOCRIT 27.2 % (37.0-47.0); HGB - HEMOGLOBIN 9.2 g/dL (12.0-16.0); LYMPHOCYTES % (AUTO) 7.3 %; MEAN CORPUSCULAR HEMOGLOBIN 29.2 pg (27.0-31.0); MEAN CORPUSCULAR HGB CONC 33.8 g/dL (32.0-36.0); MEAN CORPUSCULAR VOLUME 86.3 fL (81.0-99.0); MEAN PLATELET VOLUME 9.7 fL (7.9-10.8); MONOCYTES % (AUTO) 10.6 %; NEUTROPHILS % (AUTO) 79.8 %; PLT - PLATELET COUNT 251 10^3/uL (130-450); RED BLOOD COUNT 3.15 10^6/uL (4.20-5.40); RED CELL DISTRIBUTION WIDTH 14.8 % (12.0-15.0); WHITE BLOOD COUNT 20.9 x10^3/uL (4.8-10.8)
[2021-08-05 06:29] LABS: ABNORMAL LYMPHS % (MANUAL) 0 %
[2021-08-05 06:45] LABS: BAND NEUTROPHILS % (MANUAL) 20 %; LYMPHOCYTES # (MANUAL) 1.5 10^3/uL (1.5-3.5); LYMPHOCYTES % (MANUAL) 7 %; METAMYELOCYTES % (MANUAL) 1 %; MONOCYTES # (MANUAL) 1.3 10^3/uL (0.0-1.0); MYELOCYTES % (MANUAL) 1 %; NEUTROPHILS # (MANUAL) 17.8 10^3/uL (1.5-6.6); PLATELET ESTIMATE, MANUAL NORMAL (130-450,000) (NORMAL); RBC MORPHOLOGY (MULTIPLE) NORMAL APPEARANCE (NORMAL)
[2021-08-05 06:46] LABS: DIFFERENTIAL COMMENT MANUAL DIFFERENTIAL
[2021-08-05] MEDS ORDERED: DOCUSATE SODIUM 100 MG CAPSULE PO SCH (09:00)
[2021-08-05] MEDS: LACTATED RINGERS 1,000 ML IV SCH ×2 (09:15→11:29)
[2021-08-05] MEDS: IBUPROFEN 600 MG TABLET PO SCH ×4 (09:15→18:27)
[2021-08-05] MEDS ORDERED: RHO(D) IMMUNE GLOBULIN 300 MCG SYRINGE IVP ONE (14:40)
[2021-08-05] MEDS ORDERED: RHO(D) IMMUNE GLOBULIN 300 MCG SYRINGE IM ONE (15:09)
--- NOTE | 2021-08-05 17:04 | PROVIDER PROGRESS NOTE ---
Subjective - Prog Note Date Prog Note Date: 08/05/21 Prog Note Time: 10:30 - Subjective Subjective: Patient is doing well. Up and ambulating, tolerating po, pain well managed. IV infiltrated. Patient does not desire replacement. Only had one dose of toradol remaining. BF going well. O: VS: 98.6 88 120/83 16 99 GEN: NAD HEENT: NCAT CV: RRR RESP: CTAB, nl effort ABD: soft and appropriately tender, ND. INCISION: Dressing CDI EXT: BLE edema, symmetric. NT A/P: PPD#1 s/p LTCS O neg, Rhogam ordered Transition to po pain meds Encourage ambulation Anticipate DC home tomorrow as patient desires pm discharge Objective - Vital Signs/Intake & Output Vital Signs: Vital Signs x48h Temp Pulse Resp BP Pulse Ox 08/05/21 15:34 98.1 F 93 18 117/84 H 100 08/05/21 11:15 98.2 F 77 18 117/83 H 100 Intake & Output: Intake & Output 08/02/21 08/03/21 08/04/21 08/05/21 23:59 23:59 23:59 23:59 Intake Total 1000 1417.5 1900 Output Total 1000 2600 2600 Balance 0 -1182.5 -700 - Lab Results Fish Bones: 08/05/21 06:20 08/03/21 18:30 Other Labs: Lab Results x24hrs 08/05/21 08/05/21 08/05/21 Range/Units 06:25 06:20 06:20 WBC 20.9 H (4.8-10.8) x10^3/uL RBC 3.15 L (4.20-5.40) 10^6/uL Hgb 9.2 L (12.0-16.0) g/dL Hct 27.2 L (37.0-47.0) % MCV 86.3 (81.0-99.0) fL MCH 29.2 (27.0-31.0) pg MCHC 33.8 (32.0-36.0) g/dL RDW 14.8 (12.0-15.0) % Plt Count 251 (130-450) 10^3/uL MPV 9.7 (7.9-10.8) fL Neut # (Auto) Not Reportable Lymph # (Auto) Not Reportable Fillmore # (Auto) Not Reportable Eos # (Auto) Not Reportable Baso # (Auto) Not Reportable Absolute Nucleated RBC Not Reportable Total Counted 100 Band Neuts % (Manual) 20 H (0 - 10) % Abnorm Lymph % (Manual) 0 % Metamyelocytes % 1 H ( - 0) % Myelocytes % 1 H ( - 0) % Nucleated RBC % Not Reportable Neutrophils # (Manual) 17.8 H (1.5-6.6) 10^3/uL Lymphocytes # (Manual) 1.5 (1.5-3.5) 10^3/uL Monocytes # (Manual) 1.3 H (0.0-1.0) 10^3/uL Eosinophils # (Manual) 0.0 (0-0.7) 10^3/uL Basophils # (Manual) 0.0 (0-0.1) 10^3/uL Differential Comment MANUAL DIFFERENTIAL Platelet Estimate NORMAL (130-450,000) (NORMAL) RBC Morph Micro Appear NORMAL APPEARANCE (NORMAL) Blood Type O NEGATIVE Blood Type Recheck O NEGATIVE Maternal Bleed NEGATIVE (NEGATIVE)
[2021-08-05] MEDS: DOCUSATE SODIUM 100 MG CAPSULE PO SCH (21:49)
[2021-08-06] MEDS: IBUPROFEN 600 MG TABLET PO SCH ×4 (00:48→18:27)
[2021-08-06] MEDS: oxyCODONE 5 MG TABLET PO PRN ×4 (03:27→21:18)
[2021-08-06] MEDS: ACETAMINOPHEN 500 MG TABLET PO SCH ×3 (03:28→20:25)
[2021-08-06] MEDS ORDERED: oxyCODONE 5 MG TABLET PO ONE (05:15)
[2021-08-06] MEDS: DOCUSATE SODIUM 100 MG CAPSULE PO SCH ×2 (08:44→21:19)
--- NOTE | 2021-08-06 10:33 | Discharge Plan ---
Discharge Plan Problem Reviewed?: Yes Disposition: Home, Self Care Condition: Good Prescriptions: Acetaminophen [Acetaminophen Extra Strength] 1,000 mg PO Q8H PRN #60 tablet PRN Reason: Pain Docusate Sodium 100Mg Capsule [Colace 100Mg Capsule] 100 - 200 mg PO BID PRN #60 cap PRN Reason: Constipation Ibuprofen [Motrin] 600 mg PO Q6H PRN #60 tab PRN Reason: Pain oxyCODONE [Roxicodone] 2.5 - 5 mg PO Q4H PRN #24 tablet PRN Reason: Severe Pain Additional Instructions or Follow Up instructions: PELVIC REST: Nothing in the vagina for 6 weeks: No intercourse, tampons, douching. You are at high risk of uterine infection during this time frame. WARNING SIGNS: Call for: -Fever greater than 100.5 -Pain that does not improve with pain medication -Heavy bleeding in which you are soaking a pad an hour for 2 hours in a row -Incision becomes hot, hard, red, starts to open, or leaks foul smelling fluid -Pain or swelling in one leg and not the other +/- shortness of breath or chest pain LIFTING: No lifting more than 10# for 4 weeks DRIVING: No driving while on narcotics BATHING/WOUND CARE: Ok to shower. Let water run over the incision. Do not soap, scrub, or apply lotion. Pat dry with a clean towel or luli a [employer] chair. The surgical stickers will start to peel off and you can remove them when they do. Otherwise, the provider will remove them at your one week follow-up appointment. OK to use an unscented sanitary napkin or clean washcloth to keep the incision dry if the belly folds over the incision. DISCHARGE MEDICATIONS: Ibuprofen 600 mg by mouth every 6 hours as needed for pain Acetaminophen 500-1000 mg by mouth every 8 hours as needed for pain Docusate 100-200 mg by mouth twice a day as needed for constipation Oxycodone 2.5-5 mg by mouth every 4 hours as needed for pain No Smoking: If you smoke, Please STOP! Call for help. Follow-up with: Mandi Hilario MD [Provider Admit Priv/Credential] -
--- NOTE | 2021-08-06 10:35 | PROVIDER PROGRESS NOTE ---
Subjective - Prog Note Date Prog Note Date: 08/06/21 Prog Note Time: 10:33 Objective - Vital Signs/Intake & Output Reviewed Vital Signs: Yes Vital Signs: Vital Signs x48h Temp Pulse Pulse Resp BP Pulse Ox 08/06/21 08:30 97.5 F L 82 16 120/71 100 08/06/21 03:40 98.1 F 84 16 123/80 98 Intake & Output: Intake & Output 08/03/21 08/04/21 08/05/21 08/06/21 23:59 23:59 23:59 23:59 Intake Total 1000 1417.5 1900 500 Output Total 1000 2600 3525 Balance 0 -1182.5 -1625 500 - Objective General Appearance: positive: No acute distress Respiratory: positive: No respiratory distress Cardiovascular: positive: Other (RR) Peripheral Pulses: 2+ Dorsalis pedis (R), 2+ Dorsalis pedis (L) Abdomen: positive: Non-tender, Other (FF at umbi) Skin: positive: Color nml Extremities: positive: Non-tender, No pedal edema Neurologic/Psychiatric: positive: Oriented x3 - Lab Results Fish Bones: 08/05/21 06:20 08/03/21 18:30 - Other Results/Comments Other Results/Comments: Dressing removed. Steris with staining, now dry and intact Assessment/Plan - Problem List (1) deliv NOS-unsp Impression: POD#2 s/p LTCS -Debating pm discharge vs tomorrow am -Prepared for DC this evening -DC instructions given -Will confirm Rhogam administration FU in one week
[2021-08-07] MEDS: IBUPROFEN 600 MG TABLET PO SCH ×3 (00:35→12:22)
[2021-08-07] MEDS: oxyCODONE 5 MG TABLET PO PRN ×4 (01:20→14:45)
[2021-08-07] MEDS: ACETAMINOPHEN 500 MG TABLET PO SCH ×2 (04:00→12:22)
[2021-08-07] MEDS: DOCUSATE SODIUM 100 MG CAPSULE PO SCH (09:20)
[2021-08-07 09:29] VITALS: BP 120/79
--- NOTE | 2021-08-07 14:52 | Labor Flowsheet ---
Labor Flowsheet Datetime Report Generated by CPN: 08/07/2021 14:52 Datetime: 08/07/2021 09:14 VITAL SIGNS NBP Sys/Whitney/Mean (mmHg): 120 : 79 : 89 Pulse: 86 LaborFlag: Labor Datetime: 08/07/2021 03:30 SpO2 (%): 100 Datetime: 08/05/2021 01:30 Membranes Ruptured Date/Time: 08/03/2021 20:10 Datetime: 08/04/2021 21:34 STAGE 2 Preparation for Delivery: Abdominal Prep Stage 2 Comments: theraworx abd prep, To OR Datetime: 08/04/2021 21:30 UTERINE ACTIVITY Monitor Mode: Internal Frequency (min): 1.5-6.5 Quality: Moderate Duration (sec): 50-140 Pattern: Normal: <= 5 Contractions in 10 Minutes Resting Tone (Palpate): Relaxed Resting Tone IUP (mmHg): 20 Intensity IUP (mmHg): 40-50 ASSESSMENT A Monitor Mode: Internal Scalp Electrode FHR Baseline Rate : 145 Variability: Moderate 6-25 bpm Accelerations: None Decelerations: Variable Actions for Decelerations: Pitocin Off; IV Bolus; Provider Notified; Other Category: Category II Comments: Recurrent decels. Dr. Hilario consented patient for CSection. BLOOMING MILL SUPERVISOR at bedside. OR tea m called in Datetime: 08/04/2021 21:19 MEDICATIONS Pitocin (milliunits): Discontinued Analgesics/Sedatives: Benadryl (mg) @ 25 PATIENT CARE IV/Blood Work: IV Bolus Started Datetime: 08/04/2021 21:00 Monitor Interventions for UA: IUPC Inserted Pitocin Checklist: At Least 1 Acceleration of 15 bpm x 15 Seconds in 30 Minutes or Adequate Variabi lity; No More than 1 Late Deceleration Occurred in Past 30 Minutes; No More than 2 Variable Decelerat ions > 60 Seconds in Duration and decreasing >60 bpm in 30 minutes; No More than 5 Uterine Contractio ns in 10 Minutes for any 20 Minute Interval; Uterus Palpates Soft between Contractions Contraction Comments: FSE and IUPC placed by Dr. Hilario Monitor Interventions for FHR: FSE Applied PAIN Pain Scale: 7 Pain Presence: Intermittent Pain Relief Measures: Comfort Measures Pain Coping: Crying Anesthesia Comments: BLOOMING MILL SUPERVISOR contacted for reports of pain not controlled by epidural Datetime: 08/04/2021 20:45 VAGINAL EXAM Dilatation (cm): 6.0 Exam by: Jairo Hilario Vaginal Exam Comments: Cervical swelling Datetime: 08/04/2021 20:15 FHR Baseline Changes: No Baseline Change Datetime: 08/04/2021 19:48 Patient Position/Activity: Right Lateral Datetime: 08/04/2021 19:20 Respirations: 16 Temperature (C): 36.9 Temperature Route: Oral Datetime: 08/04/2021 19:15 Provider Reviewed Strip: Yes Strip Reviewed by: Dr. Hilario COMMUNICATION Communication: Provider at Bedside Provider Notified (Name): Dr. Hilario Notification Reason: Status; Labor Status Communication Comments: Provider discussing status with patient. Patient agrreable to start pitoci n. Provider discussed possibility of CSection becoming necessary. Patient declines at this time Datetime: 08/04/2021 19:01 Patient Care Comments: Right side lying release Datetime: 08/04/2021 19:00 Oxygen Method: Room Air Datetime: 08/04/2021 17:52 Epidural Procedure Other: Redose Datetime: 08/04/2021 17:38 Pain Type: Contraction; Pressure Pain Location: Abdomen; Perineum Pain Assessment Comments: Using distraction Comfort Measures: Breathing/Relaxation Datetime: 08/04/2021 16:37 Anesthesia Level Check: T10- Umbilicus Datetime: 08/04/2021 13:20 Membrane Status: Ruptured Membranes Rupture Method: Spontaneous Amniotic Fluid Color: Clear Amniotic Fluid Amount: Moderate Datetime: 08/04/2021 12:14 Effacement (%): 90 Datetime: 08/04/2021 03:52 I/O Interventions: Clear Liquids Given Datetime: 08/03/2021 20:51 ROM Test Kit: Positive Datetime: 08/03/2021 20:10 Amniotic Fluid Odor: None Nitrazine: Positive Datetime: 08/03/2021 19:18 Epidural Procedure: Loading Dose Datetime: 08/03/2021 18:52 PROCEDURE TIME OUT Procedure Verify: Correct Patient Identity; Correct Side and Site are Marked; Accurate Procedure Co nsent Form; Agreement on Procedure to be Done; Correct Patient Position ANESTHESIA Anesthesia Plans: Epidural Epidural Positioning: Sitting
--- NOTE | 2021-08-09 11:18 | PROCEDURE REPORT ---
Hospitalist Procedure Note - Procedure Note Procedure Note: Wellness Trainer: I assisted the OB command and control in the section for this patient. My responsibilities included retracting and suctioning, providing fundal pressure during delivery and following the suture during closure. Please the the OB's noted for details of the surgery.
--- NOTE | 2021-08-15 05:18 | DISCHARGE SUMMARY ---
Discharge Summary Discharge Date: 08/06/21 Discharging Provider: Sulaiman Condition at Discharge: Good Discharge Disposition: 01 Home, Self Care - DIAGNOSES Admission Diagnoses: IUP at 40+0 Latent labor Poor tolerance of labor pain Rh negative Discharge Diagnoses with Status of Each Condition: Same and delivery of term infant Second stage arrest intolerance of labor Dcivroseliney via - HPI History of Present Illness: ID: Patient is a 30 yo admitted at 40+0 wga as a transfer from [facility] HPI: Patient had been receiving prenatla care form [facility]. Pregnacy had been uncomplicated. Patient has been in prodromal labor for about 3 days. She has only advanced to 3 cm dilation and is exhausted. She is requesting adm ission with epidural placement. She would like a low intervention labor course. Having regular contractions. No LOF or VB. Endorses FM. having a female named Noemi. GBS negative. O negative. No hx of HSV. Hard copy of records were not yet available but electronic records were reviewed with transferring provder. PMH: none PSH: none OB HX: , No STIs, no abnl pap smears SOC HX: Recently moved form [facility]. Wally RUSS, active duty. ROS: As per HPI, otherwise remaining systems are negative. PE: VS: 98.2 94 132/78 18 GEN: NAD HEENT: NCAT CV: RR RESP: nl effort ABD: gravid, S&NT/ND EXT: WWP PSYCH: appropriate affect NEURO: A&O EFM 135 mod laurence 15x15 accels no decels TOCO: Q5 min - HOSPITAL COURSE Hospital Course: Patient is a 30 yo at 40+2 who presented as a transfer from [facility]. She had been in latent labor for 3 days with cervical dilation stalled at 3 cm. She was admitted for epidural placement. Spontaneous rupture of membranes at about 20:00 on 08/03/21. She progressed to 6 cm dilation without need for augmentation. GBs negative. She did not dilate past 6 cm for over 6 hours IUPC and FSE were placed. Patient was started on pitocin 1 mu/min. tracing showed recurrent deep decels without advancement in cervical dilation and with prolonged rupture of membranes. was recommended for active stage arrest and intolerance of labor. Findings: Intraoperatie findings showed a female in vertex presentation, with OP positioning. Normal uterus, tubes, and ovaries. Somewhat distended bladder. Small amount of ascites in pelvis. Apgars 8/8. BW [id number] Bilateral uterine extensions, repaired. Post operative course was uncomplicated. Rhogam administered due to Rh incompatibility. Discharged on POD#3 in the am, due to late pm delivery. - ALLERGIES Allergies/Adverse Reactions: Allergies Allergy/AdvReac Type Severity Reaction Status Date / Time Sulfa (Sulfonamide Allergy Rash Verified 08/03/21 18:49 Antibiotics) - MEDICATIONS Home Medications: Ambulatory Orders Medication Instructions Recorded Confirmed Acetaminophen [Acetaminophen Extra 1,000 mg PO Q8H PRN #60 tablet 08/05/21 Strength] Docusate Sodium 100Mg Capsule 100 - 200 mg PO BID PRN #60 cap 08/05/21 [Colace 100Mg Capsule] Ibuprofen [Motrin] 600 mg PO Q6H PRN #60 tab 08/05/21 oxyCODONE [Roxicodone] 2.5 - 5 mg PO Q4H PRN #24 tablet 08/05/21 Acetaminophen [Acetaminophen Extra 1,000 mg PO Q8H PRN #60 tablet 08/07/21 Strength] Docusate Sodium 100Mg Capsule 100 - 200 mg PO BID PRN #60 cap 08/07/21 [Colace 100Mg Capsule] Ibuprofen [Motrin] 600 mg PO Q6H PRN #60 tab 08/07/21 oxyCODONE [Roxicodone] 2.5 - 5 mg PO Q4H PRN #24 tablet 08/07/21 - PHYSICAL EXAM AT DISCHARGE General Appearance: positive: No acute distress Neck: positive: Nml inspection Respiratory: positive: No respiratory distress, Breath sounds nml Cardiovascular: positive: Regular rate & rhythm Peripheral Pulses: positive: 2+ Abdomen: positive: Non-tender, Other (Dressing removed. Incision CDI) - LABS Result Diagrams: 08/05/21 06:20 08/03/21 18:30 - FOLLOW UP Follow Up: 1 week for wound check - TIME SPENT Time Spent in Discharge (Minutes): 30
== END 2021-08-07 14:50 | disposition home or self-care (01) | DRG 788 ==
LOC: WFO 18:05 → FBP 18:06 → WFO 18:27 → FBP 18:28
PROVIDERS: ADMIT Obstetrics & Gynecology; ATTEND Obstetrics & Gynecology
PROC: 10H07YZ Insertion of Other Device into Products of Conception, Via Natural or Artificial Opening (ICD-10-PCS; principal; 2021-08-03)
PROC: 4A1H74Z Monitoring of Products of Conception, Cardiac Electrical Activity, Via Natural or Artificial Opening (ICD-10-PCS; 2021-08-03)
PROC: 10H073Z Insertion of Monitoring Electrode into Products of Conception, Via Natural or Artificial Opening (ICD-10-PCS; 2021-08-03)
PROC: 10D00Z1 Extraction of Products of Conception, Low, Open Approach (ICD-10-PCS; 2021-08-04)
DX: O62.1 Secondary uterine inertia (principal); Z3A.40 40 weeks gestation of pregnancy; Z37.0 Single live birth; O75.81 Maternal exhaustion complicating labor and delivery; O76 Abnormality in fetal heart rate and rhythm complicating labor and delivery; O63.1 Prolonged second stage (of labor); Z88.2 Allergy status to sulfonamides
CPT/HCPCS: 36415; 80053; 83033; 84112; 85025; 86850; 86900; 86901; A9270; J0131; J1200; J2274; J7040; J7120

== ENCOUNTER 2021-10-21 12:26 | Outpatient (CLI) | payer OTHER ==
--- NOTE | 2021-10-22 18:44 | Ultrasound Report ---
PROCEDURE: Pelvic w/Transvaginal INDICATIONS: PROLONGED BLEEDING TECHNIQUE: Real-time scanning was performed of the pelvic organs, with image documentation. Additional endovagi nal scanning was necessary due to incomplete visualization of the adnexal and endometrial structures by transabdominal scanning. COMPARISON: None. FINDINGS: Uterus: Uterus is anteverted and normal in size at 7.6 x 3.3 x 4.8 cm. The myometrium is homogeneou s. The endometrium measures 26.3 mm in combined thickness. Ovaries: The right ovary measures 3.7 x 2.4 x 2.0 cm, with a calculated ovarian volume of 1.2 cc. T he left ovary measures 3.4 x 2.0 x 2.2 cm, with a calculated ovarian volume of 7.4 cc. The ovaries h ave a normal sonographic appearance. Less than 12 follicles can be seen in each ovary. No adnexal m asses are seen. Other: No pathologic free abdominal or pelvic fluid. IMPRESSION: Unremarkable ultrasound of the pelvis. No evidence of retained products of conception Reviewed by: Cj Tolbert MD on 10/22/2021 5:42 PM PACO Approved by: Cj Tolbert MD on 10/22/2021 5:42 PM PACO Station ID: [id number]
== END 2021-10-21 12:27 | disposition home or self-care (01) ==
LOC: DI 12:26
PROVIDERS: ATTEND Midwife
DX: O72.1 Other immediate postpartum hemorrhage (principal)